=== PATIENT | female | born 1990 | race American Indian/Alaskan Native ===

== ENCOUNTER 2020-03-30 11:36 | Emergency (ER) | payer OTHER ==
--- NOTE | 2020-03-30 12:14 | Event Note ---
ED Screening Note Date of service: 03/30/20 Time: 12:08 ED Screening Note: 29-year-old -Citizen Of [place] female presents to the emergency room for nausea and abdominal pain x2 days. Pain is located epigastric area. Last menstrual period 03/07/2020 This initial assessment/diagnostic orders/clinical plan/treatment(s) is/are subject to change based on patients health status, clinical progression and re- assessment by fellow clinical providers in the ED. Further treatment and workup at subsequent clinical providers discretion. Patient/guardian urged not to elope from the ED as their condition may be serious if not clinically assessed and managed. Initial orders include:
[2020-03-30 12:18] VITALS: BP 116/64
[2020-03-30 13:46] LABS: Hematocrit 41.4 % (30.3-42.9); Hemoglobin 13.7 gm/dl (10.1-14.3); Mean Corpuscular HGB Conc 33 % (30-34); Mean Corpuscular Volume 90 fl (79-97); Platelet Count 266 K/mm3 (140-440); Red Blood Count 4.59 M/mm3 (3.65-5.03); Red Cell Distribution Width 13.3 % (13.2-15.2)
[2020-03-30 14:01] LABS: Alanine Aminotransferase 14 units/L (7-56); BUN/Creatinine Ratio 8; Blood Urea Nitrogen 6 mg/dL (7-17); Calcium 9.4 mg/dL (8.4-10.2); Hemolysis Index 15
[2020-03-30 14:03] LABS: Basophils % (Auto) 0.5 % (0.0-1.8); Eosinophils # (Auto) 0.1 K/mm3 (0.0-0.4); Eosinophils % (Auto) 2.2 % (0.0-4.3); Lymphocytes # (Auto) 2.9 K/mm3 (1.2-5.4); Monocytes # (Auto) 0.4 K/mm3 (0.0-0.8); Monocytes % (Auto) 7.1 % (0.0-7.3)
[2020-03-30 14:09] LABS: Bilirubin,Urine NEG (Negative); Blood,Urine NEG (Negative); Color,Urine Yellow (Yellow); Mucus,Urine FEW /HPF; Protein,Urine <15 mg/dL mg/dL (Negative); Urobilinogen,Urine < 2.0 mg/dL (<2.0); WBC,Urine < 1.0 /HPF (0.0-6.0)
--- NOTE | 2020-03-30 14:12 | Emergency Department Report ---
ED Abdominal Pain HPI - General Chief Complaint: Abdominal Pain Stated Complaint: STOMACH PAIN/NAUSEA Time Seen by Provider: 03/30/20 14:11 Source: patient Mode of arrival: Ambulatory Limitations: No Limitations - History of Present Illness Initial Comments: Patient is 29 years old female with no significant past medical history. Patient presented to the ER complaining of epigastric abdominal pain for the last 3 days on and off. Patient stated that pain is burning sensation sometimes. Patient denied any fever or chills. Patient stated that she will be nauseated sometimes. No chest pain or shortness of breath. MD Complaint: abdominal pain - Related Data Allergies Allergy/AdvReac Type Severity Reaction Status Date / Time Penicillins Allergy Intermediate Anaphylaxis Verified 03/30/20 12:00 ED Review of Systems ROS: Stated complaint: STOMACH PAIN/NAUSEA Other details as noted in HPI ED Past Medical Hx - Past Medical History Previous Medical History?: No - Surgical History Past Surgical History?: Yes Additional Surgical History: adnoids and toncilectomy 2001 - Social History Smoking Status: Current Some Day Smoker Substance Use Type: Marijuana ED Physical Exam - General Limitations: No Limitations ED Course Vital Signs 03/30/20 03/30/20 11:44 12:18 Temperature 98.6 F 98.5 F Pulse Rate 120 H 58 L Respiratory 20 16 Rate Blood Pressure 116/64 [Left] O2 Sat by Pulse 95 98 Oximetry ED Medical Decision Making - Lab Data Result diagrams: 03/30/20 13:04 03/30/20 13:04 - Medical Decision Making Patient is 29 years old female with no significant past medical history. Patient presented to the ER complaining of epigastric abdominal pain for the last 3 days on and off. Patient stated that pain is burning sensation sometimes. Patient denied any fever or chills. Patient stated that she will be nauseated sometimes. No chest pain or shortness of breath. Labs reviewed and is unremarkable. Patient stated that at this moment she does not have any chest pain. At this moment I did not see any clinical or laboratory evidence of acute abdomen. Patient given prescription for Nexium and Zofran and advised to follow-up with her primary care physician in the next 2 to 3 days and to return to the ER if she develop any new symptoms. Critical care attestation.: If time is entered above; I have spent that time in minutes in the direct care of this critically ill patient, excluding procedure time. ED Disposition Clinical Impression: Acute abdominal pain, Gastritis Disposition: [id number] TO HOME OR SELFCARE Is pt being admited?: No Condition: Stable Instructions: Abdominal Pain, Adult, Gastritis, Adult, Abdominal Pain (ED) Referrals: PRIMARY CARE,MD [Primary Care Provider] - 3-5 Days Forms: Work/School Release Form(ED)
[2020-03-30 14:51] LABS: Platelet Estimate Consistent w Auto; RBC Morphology Normal; Total Cells Counted 100
== END 2020-03-30 15:23 | disposition home or self-care (01) ==
LOC: ED 11:36
DX: K29.70 Gastritis, unspecified, without bleeding (principal); F17.200 Nicotine dependence, unspecified, uncomplicated; F12.10 Cannabis abuse, uncomplicated; Z79.899 Other long term (current) drug therapy; Z88.0 Allergy status to penicillin
CPT/HCPCS: 36415; 80053; 81001; 83690; 84702; 85007; 85025; 99283